=== PATIENT | male | born 1990 ===

== ENCOUNTER 2025-01-29 12:24 | Emergency (ER) | payer MEDICARE ==
[~2025-01-29] VITALS: Ht 175.3 cm; Wt 85.2 kg
[2025-01-29 12:26] VITALS: BP 138/97; PULSE 88; RESP 16; O2SAT 99
[2025-01-29 13:58] LABS: BILIRUBIN,URINE NEGATIVE (Neg); CLARITY,URINE CLEAR (Clear); COLOR,URINE YELLOW (Yellow); GLUCOSE, URINE NEGATIVE (Neg); KETONES,URINE NEGATIVE (Neg); LEUKOCYTE ESTERASE ,URINE NEGATIVE (Neg); NITRITES, URINE NEGATIVE (Neg); OCCULT BLOOD,URINE NEGATIVE (Neg); PROTEIN,URINE NEGATIVE (Neg); UROBILINOGEN,URINE 0.2 E.U/dL (0.2-1.0)
[2025-01-29 13:59] LABS: UA COLLECTION TYPE CLN CATCH MIDSTREAM
--- NOTE | 2025-01-29 14:28 | Physician Documentation ---
History of Present Illness ~ Chief Complaint: Urinary Symptoms Stated Complaint: BACTERIAL INFECTION Time Seen by MD: 13:07 [facility] 34 Year old male with a history of UTI presents to the ED complaining of ongoing urinary symptoms. States he has been taking Bactrim and recently changed to doxycycline. He was here to have his urine tested to establish he had has an ongoing UTI Day of Onset: January 29, 2025 Medication Reconciliation Allergies: Coded Allergies: ciprofloxacin (Unverified Allergy, Severe, tendon rupture, 01/29/25) Uncoded Allergies: OPIOID PAIN MEDICATIONS (Adverse Reaction, Severe, respiratory distress, 01/29/25) Review of Systems All Other Systems at this time: Reviewed and Negative ROS As stated above in the HPI, otherwise all systems are reviewed and negative. Physical Exam Vital Signs: Temperature: 98.2, Source: Oral, Heart Rate: 88, Respiratory Rate: 16, BP: 138/97, Pulse Oximetry: 99, Weight: 85.200 Oxygen Flow Rate: 0 Physical Exam General: Alert, no apparent distress. Respiratory: Lungs clear, no respiratory distress. Chest: No accessory muscle use. Neurologic: Oriented x4. Psychiatric: Normal mood and affect. Skin: Normal color, warm and dry. No edema, no ecchymosis. Progress Results/Orders Results/Orders Vital Signs 01/29/25 01/29/25 12:26 14:57 Temp 98.2 98.2 Pulse 88 Resp 16 B/P (MAP) 138/97 Pulse Ox 99 O2 Flow Rate 0 Laboratory Tests Test 01/29/25 13:51 Urine Specimen Description Cln catch midstream Urine Color Yellow Urine Clarity Clear Urine pH 7.0 Urine Specific Varney 1.010 Urine Protein Negative Urine Glucose (UA) Negative Urine Ketones Negative Urine Occult Blood Negative Urine Nitrite Negative Urine Bilirubin Negative Urine Urobilinogen 0.2 Urine Leukocyte Esterase Negative Urine Culture Indicated Not ind Volume Urine Centrifuged 10 ml Urine Comment Medical Decision Making Findings Urinalysis did not indicate any signs of acute infection or RBCs. Considering the patient is not currently septic or suffering from any severe infection based on his urinalysis, I am going to advise him to continue taking his previously prescribed doxycycline and follow up with the [place] doctor [place] Urinary Diff Dx:Considerations: Include: AAA, Aortic dissection, Appendicitis, Appendicitis train, Bowel obstruction, Bladder outlet obstruc., Cholelithiasis, Choleangitis, Cholecystitis, DJD, Epididymitis, Hepatitis, HNP, Impaction, Musculoskeletal pain, Pancreatitis, Postoperative Comp., Prostatitis, Pyeloneph ritis, Renal failure, Renal infarction, Strain, Urolithiasis, Urinary Obstruction, Urethritis, Urinary retention, UTI, Other Departure Disposition: 01 HOME / SELF CARE / HOMELESS Impression: Primary Impression: Urinary tract pain Condition: Stable Referrals: NO PRIMARY CARE PROVIDER (PCP) Signature Scribe Signature: t Attestation: The note accurately reflects work and decisions made by me.Jayson Moncada - SUREKHA 01/29/25 15:03 JAYSON MONCADA NP January 29, 2025 14:28
[2025-01-29 14:57] VITALS: TEMP 98.2
== END 2025-01-29 14:59 | disposition home or self-care (01) ==
LOC: ER 12:24
DX: R39.89 Other symptoms and signs involving the genitourinary system (principal); Z88.1 Allergy status to other antibiotic agents
CPT/HCPCS: 51798; 81003; 99283; 99284